=== PATIENT | male | born 1995 | race Caucasian/White ===

== ENCOUNTER 2018-06-11 00:30 | Observation (INO) ==
[2018-06-11] MEDS ORDERED: Ibuprofen 400 MG TABLET PO PRN (04:09)
[2018-06-11] MEDS ORDERED: Mag Hydrox/Al Hydrox/Simeth 30 ML UDC PO PRN (04:09)
[2018-06-11] MEDS ORDERED: Haloperidol Lactate 5 MG/ML VIAL IM PRN (04:09)
[2018-06-11] MEDS ORDERED: MOM Conc 10 ML UD.LIQ PO PRN (04:09)
[2018-06-11] MEDS ORDERED: traZODone 50 MG TABLET PO PRN (04:09)
[2018-06-11] MEDS ORDERED: hydrOXYzine pamoate 25 MG CAPSULE PO PRN (04:09)
[2018-06-11] MEDS ORDERED: *HR* LORazepam 1 MG TABLET PO PRN (04:09)
[2018-06-11] MEDS ORDERED: *HR* LORazepam 2 MG/ML VIAL IM PRN (04:09)
[2018-06-11 10:37] VITALS: BP 92/59
--- NOTE | 2018-06-11 10:38 | Discharge Summary ---
Date of Encounter: 06/11/18 Time of Encounter: 10:34 History of Present Illness Chief complaint: "I was just trying to sleep" Admitted From: Emergency Dept History of Present Illness: Mr. Javier is a 22 year old male who was taken to the emergency room by his uncle in a truck after he had taken 10 Flexeril tablets. He said that he and his girlfriend had been fighting and his girlfriend did not want to give him gas money to leave the fight so he decided that he just would go to sleep. He said he had previously taken for Flexeril tabs in the past to help him sleep but this only let him sleep for about 4 hours. He said he really wanted to be able to just go to sleep immediately and sleep the entire night so he took 10. He said he had no intention of doing this to harm himself. He said that this was only to sleep. He said he has not been having any suicidal thoughts, ideations, plans. He reports that he has been through some difficult things in his life including his mother dying him his arms in 2013 and his father's in 2017 but that he has come out of it stronger. He said he has many things to live for including his 2-year-old daughter and his job. He said that his girlfriend came and visited him yesterday which was "amazing" and that they are doing well. He said they never broke up they just had a fight. History of manic symptoms. He reports that his sleep is difficult at times but this is chronic for him. He reports good appetite, interests, and concentration. He denies hopelessness. He has no suicidal or homicidal thoughts, ideations, or plans. He has no psychotic symptoms. There has been much inconsistency with him some information provided. He and I went through [id number] all of this information. Some of the documentation from the emergency room states that he had cut his wrists according to family. We discussed this there is no evidence of cuts on his wrists. He has some very superficial scratches bilaterally on both forearms front and back which are consistent with his work. Also some of the information documented in the emergency room states that family called and said that he lost both of his parents within the last 2 months. Again this is not accurate. He said that his mother in 2013 and his father about 5 months ago. He said that these have been stressful things for him but that he is coping with them appropriately. Finally, the nursing staff from the emergency room call me last night after I had indicated that the pink slip could be lifted and he could be discharged from [address] [place] [address] and said that he had overheard the patient stating to someone on the phone that he had lied to psych and was going to overdose again when he got out and that time make sure he killed him. There is significant discrepancy with this as the note that is actually entered into chart states that this was not overheard but that family member who is not named stated this to a [employer]. I discussed with the patient he actively denies that this occurred. The patient and I called his girlfriend together. She agrees with him and feels that there was no intents to harm himself but behind the medication that he only wanted to sleep. She said he has not been cutting on himself or expressing suicidal thoughts. She said she has not been concerned about his functioning that they just had a fight. She reports that there are no guns in the home. She have any concerns with him returning to the home or concerns about him harming himself. Past Med Surg Social Fam HX - Past Medical History Medical history: no medical history - Past Psychiatric History Psychiatric history: Reports: depression. Denies: prior suicide attempt, previous psychiatric hospitalization Past psychiatric history details: He has never been in a psychiatric hospital. He saw a therapist once when he was in foster care as a child who did not find it helpful. He has never been tried on any psychiatric medications and says he prefers to these. He has no history of suicide attempts. Family psychiatric history: Yes Family Psychiatric History Details: He said his mother's side of the family has alcohol use disorder. 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 He reports that he does use occasional cannabis and rare alcohol. 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 He lives with his girlfriend and their 2-year-old child. He denies a legal history. Medications - Discharge Medications Allergy/AdvReac Type Severity Reaction Status Date / Time No Known Allergies Allergy Verified 06/11/18 07:58 Review of Systems Constitutional: Denies: fever Eyes: Denies: eye pain Ears, Nose, Throat: Denies: ear pain Cardiovascular: Denies: chest pain Respiratory: Denies: cough Gastrointestinal: Denies: abdominal pain Genitourinary male: Denies: urgency Musculoskeletal: Denies: back pain Integumentary: Reports: other (Very superficial linear scratches which are scabbed over bilaterally on forearms on both aspects consistent with manual labor.) Neurological: Denies: headache Psychiatric: Reports: depression (Mild) Endocrine: Denies: fatigue, heat or cold intolerance Hematologic/Lymphatic: Denies: easy bruising, lymphadenopathy Allergic/Immunologic: Denies: urticaria, itchy eyes Exam - HEENT Head exam IM: Present: atraumatic Eye exam IM: Present: normal appearance ENT exam IM: Present: mucous membranes moist - Neurological Neurological exam: Present: CN II-XII intact - Respiratory Respiratory exam IM: Absent: respiratory distress - GI/Abdominal GI/Abdominal exam IM: Present: no peritoneal signs - Extremities Extremities exam IM: Present: full ROM - Skin Skin exam IM: Absent: diaphoretic - Constitutional General appearance: age & developmentally appropriate, well-groomed, well- nourished - Musculoskeletal Gait: normal Station: relaxed Strength & Tone: normal for patient - Psychiatric Patient Orientation: Yes Person, Yes Time, Yes Place Level of alertness: Alert Behavior: calm, cooperative Psychomotor activity: Normal Eye Contact: Maintains Eye Contact Mood Description: Euthymic/stable Patient description of mood: good, I just need to get to work Affect description: congruent with mood, full range Speech Volume: Normal Speech pattern: normal rate, normal rhythm, normal tone, fluent, spontaneous Language & Vocabulary: consistent with education Thought Process: Linear, Goal Oriented Thought Content: No Suicidal ideation, No Homicidal ideation, No Overt delusions Perceptual Disturbances: No Auditory hallucinations, No Visual hallucinations Attention Span Ability: Capable of Focused Attention Memory Description: Grossly Intact Patient Reliability: Reliable Historian Fund of knowledge: Yes abstraction ability, Yes average, Yes aware of current events Intelligence Estimate: Average Judgment: Good Insight: Full Diagnosis - Discharge Diagnosis (1) Depression Status: Acute Qualifiers: Depression Type: major depressive disorder Major depression recurrence: recurrent Active/Remission status: currently active Major depression episode severity: mild Qualified Code(s): F33.0 - Major depressive disorder, recurrent, mild Assessment and Plan - Patient/Caregiver Discharge Instructions Activity: resume usual activities as tolerated Diet: regular diet Additional Instructions: Continue current medications. Follow up with outpatient mental health. [facility] continued therapy in a group or individual setting. The patient was discharged to home. - Follow up Plan Functional capacity at discharge: independent ambulation Overall status at discharge: Stable Disposition: Home, Self-Care Provider Date of admission: 06/11/18 03:38 Discharging clinician: Jacki Qiu [facility] Course Hospital course: Mr. Javier is a 22 year old male who was admitted from the 2 S. hold after he overtook Flexeril medications. I had initially counseled in him while he was on 2 S. hold and at that time felt comfortable with him being discharged to home however there was then some contradictory information provided about additional comments of suicidality. Therefore we brought him to for further observation. He has done well during this observation. No evidence of suicidal thoughts, ideations, or plans. He has been future oriented. He has not demonstrated signs of severe depression. He has some sleep difficulties but otherwise is no major symptomatology. No manic symptoms or psychotic symptoms. No homicidal ideations. We discussed medication options and he declined medications and have capacity to make this decision.The patient was educated primarily by verbal means about their diagnosis and manifestations in their life. The option for treatment including group and individual therapy programming was offered to the patient in addition to the use of medications with all their potential risks, benefits, and side effects as well as the risks of not taking medication and non-adhereance were discussed with the patient at length. The patient was given the opportunity to ask questions and was noted to participate in the treatment in the planning process. The patient felt ready and eager to be discharged from the inpatient psychiatric unit to continue on with treatment as an outpatient. The patient agreed that is they were safe for this disposition. The patient was considered to be able to participate in informed consent and decision making with respect to medical, legal, and financial issues of the time of discharge. At the time of discharge the patient adamantly denied any concerns for lethality including suicidal or homicidal thoughts ideations or plans and was future oriented toward ongoing mental health care, medical follow-up and sobriety. Time spent discussing smoking cessation with patient: 3 to 10 minutes Does patient wish to continue nicotine replacement upon disc: No - Time Spent with Patient Total time spent providing and/or coordinating discharge services: 45 Greater than 30 minutes Specific discharge activities: Interval history reviewed. Available labs reviewed . Psychotherapy provided. Patient had an opportunity to ask questions and address concerns. Patient was in agreement with the treatment plan. The risks benefits and side effects of medications were discussed with the patient, including alternatives and treatment. The patient was educated on the abstaining from any alcohol or illicit substances, following up with all scheduled appointments, and taking all medications as prescribed. The patient was educated on 90 meetings in 90 days and to find a sponsor. Procedures - Procedures Procedures: Medication Management, Crisis Stabilization, Supportive Therapy, Group Therapy, Psychoeducational Therapy Quality - Multiple Antipsychotics Patient discharged on 2 or more antipsychotic medications: No
== END 2018-06-11 14:50 | disposition home or self-care (01) ==
LOC: 1ANU
PROVIDERS: ADMIT Psychiatry & Neurology Psychiatry; ATTEND Psychiatry & Neurology Psychiatry